=== PATIENT | male | born 1955 | race African-American/Black ===

== ENCOUNTER 2019-05-22 15:15 | Emergency (ER) | payer MEDICAID ==
[~2019-05-22] VITALS: Ht 175.3 cm; Wt 102.0 kg
[2019-05-22 15:20] VITALS: BP 130/83
== END 2019-05-22 18:38 | disposition left against medical advice (07) ==
LOC: ER 15:15
DX: R68.89 Other general symptoms and signs (principal); Z53.21 Procedure and treatment not carried out due to patient leaving prior to being seen by health care provider
CPT/HCPCS: 93005

== ENCOUNTER 2019-05-23 21:22 | Emergency (ER) | payer MEDICAID ==
[~2019-05-23] VITALS: Ht 177.8 cm; Wt 91.0 kg
[2019-05-23] MEDS ORDERED: SODIUM CHLORIDE 0.9% 1,000 ML IV ONE (23:16)
[2019-05-23 23:37] LABS: HEMATOCRIT. 38.1 % (42.0-52.0); HEMOGLOBIN. 12.8 g/dL (14.0-18.0); MEAN CORPUSCULAR HEMOGLOBIN 33.4 pg (28.0-32.0); MEAN CORPUSCULAR VOLUME 99.2 fL (80.0-94.0); MEAN PLATELET VOLUME 8.4 fl (7.4-10.4); PLATELET 351 x1000/uL (130-400); RED BLOOD CELL COUNT 3.84 mill/uL (4.7-6.1)
[2019-05-23 23:39] LABS: CHLORIDE 103 mEq/L (98-107)
[2019-05-24 01:31] VITALS: BP 124/63
[2019-05-24 01:37] LABS: ATYPICAL LYMPHOCYTES 1; PLATELET ESTIMATE NORMAL
== END 2019-05-24 03:38 | disposition home or self-care (01) ==
LOC: ER 21:40
DX: R53.1 Weakness (principal); E11.9 Type 2 diabetes mellitus without complications; I10 Essential (primary) hypertension
CPT/HCPCS: 36415; 71045; 80053; 82962; 83880; 84484; 85025; 93005; 99284; J7030; Z7610

== ENCOUNTER 2019-06-04 01:02 | Emergency (ER) | payer MEDICAID ==
[~2019-06-04] VITALS: Ht 172.7 cm; Wt 110.0 kg
[2019-06-04] MEDS ORDERED: ACETAMINOPHEN 325MG TABLET PO STA (01:53)
[2019-06-04 03:25] LABS: BASOPHILS % 1.3 % (0.0-2.0); EOSINOPHILS % 4.2 % (0.0-5.0); HEMATOCRIT. 39.4 % (42.0-52.0); HEMOGLOBIN. 13.1 g/dL (14.0-18.0); LYMPHOCYTES % 33.3 % (20.0-50.0); MEAN CORPUSCULAR HEMOGLOBIN 32.8 pg (28.0-32.0); MEAN CORPUSCULAR VOLUME 99.1 fL (80.0-94.0); MEAN PLATELET VOLUME 8.8 fl (7.4-10.4); NEUTROPHILS % 52.2 % (40.0-76.0); PLATELET 354 x1000/uL (130-400); RED BLOOD CELL COUNT 3.98 mill/uL (4.7-6.1); RED CELL DISTRIBUTION WIDTH 13.3 % (11.6-14.6)
[2019-06-04 03:32] LABS: CHLORIDE 108 mEq/L (98-107)
[2019-06-04 04:50] VITALS: BP 120/80
== END 2019-06-04 05:15 | disposition home or self-care (01) ==
LOC: ER 01:02
DX: J06.9 Acute upper respiratory infection, unspecified (principal); E11.9 Type 2 diabetes mellitus without complications; I10 Essential (primary) hypertension; F17.200 Nicotine dependence, unspecified, uncomplicated
CPT/HCPCS: 36415; 71045; 84484; 93005; 99284

== ENCOUNTER 2019-06-17 23:15 | Emergency (ER) | payer MEDICAID ==
[~2019-06-17] VITALS: Ht 182.9 cm; Wt 109.0 kg
[2019-06-18 03:22] LABS: BASOPHILS % 0.8 % (0.0-2.0); EOSINOPHILS % 3.2 % (0.0-5.0); HEMATOCRIT. 36.9 % (42.0-52.0); HEMOGLOBIN. 12.5 g/dL (14.0-18.0); LYMPHOCYTES % 16.4 % (20.0-50.0); MEAN CORPUSCULAR HEMOGLOBIN 33.3 pg (28.0-32.0); MEAN CORPUSCULAR VOLUME 98.6 fL (80.0-94.0); MEAN PLATELET VOLUME 9.2 fl (7.4-10.4); MONOCYTES % 7.3 % (2.0-8.0); NEUTROPHILS % 72.3 % (40.0-76.0); PLATELET 303 x1000/uL (130-400); RED BLOOD CELL COUNT 3.74 mill/uL (4.7-6.1); RED CELL DISTRIBUTION WIDTH 13.1 % (11.6-14.6)
[2019-06-18 03:24] LABS: CHLORIDE 103 mEq/L (98-107)
[2019-06-18 03:28] LABS: ETHANOL BLOOD < 10 mg/dL
[2019-06-18] MEDS ORDERED: IBUPROFEN 600MG TABLET PO NR (05:52)
[2019-06-18 06:53] VITALS: BP 110/87
== END 2019-06-18 07:27 | disposition home or self-care (01) ==
LOC: ER 23:15
DX: R07.9 Chest pain, unspecified (principal); Z89.411 Acquired absence of right great toe
CPT/HCPCS: 36415; 71045; 80320; 83880; 84484; 93005; 93971; 99284; G0480

== ENCOUNTER 2019-06-19 20:02 | Emergency (ER) | payer MEDICAID ==
[~2019-06-19] VITALS: Ht 182.9 cm; Wt 111.0 kg
[2019-06-19] MEDS: KETOROLAC 60MG/2ML VIAL IM ONE (21:20)
[2019-06-19 22:02] VITALS: BP 108/69
== END 2019-06-19 22:03 | disposition home or self-care (01) ==
LOC: ER 20:02
DX: M79.661 Pain in right lower leg (principal); F17.290 Nicotine dependence, other tobacco product, uncomplicated; E11.9 Type 2 diabetes mellitus without complications; Z98.890 Other specified postprocedural states
CPT/HCPCS: 96372; 99283; J1885

== ENCOUNTER 2019-06-20 13:38 | Emergency (ER) | payer MEDICAID | END 2019-06-20 14:48 | disposition left against medical advice (07) | LOC: ER 13:50 | DX: Z53.21 Procedure and treatment not carried out due to patient leaving prior to being seen by health care provider (principal) ==

== ENCOUNTER 2019-07-01 02:42 | Emergency (ER) | payer MEDICAID ==
[~2019-07-01] VITALS: Ht 182.9 cm; Wt 87.0 kg
[2019-07-01 02:59] VITALS: BP 108/76
== END 2019-07-01 05:53 | disposition left against medical advice (07) ==
LOC: ER 02:42
DX: Z53.21 Procedure and treatment not carried out due to patient leaving prior to being seen by health care provider (principal); E11.9 Type 2 diabetes mellitus without complications; I10 Essential (primary) hypertension; E78.00 Pure hypercholesterolemia, unspecified

== ENCOUNTER 2019-07-10 21:28 | Emergency (ER) | payer MEDICAID ==
[~2019-07-10] VITALS: Ht 182.9 cm; Wt 111.0 kg
[2019-07-11 01:15] VITALS: BP 147/76
[2019-07-11] MEDS ORDERED: IBUPROFEN 600MG TABLET PO ONE (01:15)
== END 2019-07-11 02:40 | disposition left against medical advice (07) ==
LOC: ER 21:28
DX: M79.10 Myalgia, unspecified site (principal); E11.9 Type 2 diabetes mellitus without complications; E78.00 Pure hypercholesterolemia, unspecified; I10 Essential (primary) hypertension; F17.200 Nicotine dependence, unspecified, uncomplicated; X50.3XXA Overexertion from repetitive movements, initial encounter; Y93.01 Activity, walking, marching and hiking; Y92.9 Unspecified place or not applicable
CPT/HCPCS: 99281

== ENCOUNTER 2019-07-31 20:44 | Emergency (ER) | payer MEDICAID ==
[~2019-07-31] VITALS: Ht 182.9 cm; Wt 110.0 kg
[2019-07-31] MEDS ORDERED: IBUPROFEN 600MG TABLET PO ONE (22:30)
[2019-08-01 06:15] VITALS: BP 121/80
== END 2019-08-01 06:15 | disposition home or self-care (01) ==
LOC: ER 20:44
DX: G89.29 Other chronic pain (principal); M79.604 Pain in right leg; E11.9 Type 2 diabetes mellitus without complications; I10 Essential (primary) hypertension; E78.00 Pure hypercholesterolemia, unspecified; F17.200 Nicotine dependence, unspecified, uncomplicated; Z59.0 Homelessness
CPT/HCPCS: 99283

== ENCOUNTER 2019-08-24 21:03 | Emergency (ER) | payer MEDICAID ==
[~2019-08-24] VITALS: Ht 182.9 cm; Wt 109.0 kg
[2019-08-24 22:01] VITALS: BP 132/88
== END 2019-08-25 10:28 | disposition home or self-care (01) ==
LOC: ER 21:03
DX: Z04.89 Encounter for examination and observation for other specified reasons (principal); G89.29 Other chronic pain; M79.661 Pain in right lower leg; E11.9 Type 2 diabetes mellitus without complications; I10 Essential (primary) hypertension; E78.00 Pure hypercholesterolemia, unspecified; Z59.0 Homelessness
CPT/HCPCS: 99282

== ENCOUNTER 2019-08-31 17:58 | Emergency (ER) | payer MEDICAID ==
[~2019-08-31] VITALS: Ht 175.3 cm; Wt 82.0 kg
[2019-08-31] MEDS ORDERED: IBUPROFEN 600MG TABLET PO ONE (18:45)
[2019-08-31 19:05] LABS: HEMATOCRIT. 38.9 % (42.0-52.0); HEMOGLOBIN. 13.2 g/dL (14.0-18.0); MEAN CORPUSCULAR HEMOGLOBIN 33.8 pg (28.0-32.0); MEAN CORPUSCULAR VOLUME 99.7 fL (80.0-94.0); MEAN PLATELET VOLUME 8.6 fl (7.4-10.4); PLATELET 292 x1000/uL (130-400); RED CELL DISTRIBUTION WIDTH 12.9 % (11.6-14.6)
[2019-08-31 19:11] LABS: CHLORIDE 104 mEq/L (98-107)
[2019-08-31 19:15] LABS: ETHANOL BLOOD 174 mg/dL
[2019-08-31 19:51] LABS: PLATELET ESTIMATE NORMAL
[2019-09-01 05:57] VITALS: BP 135/78
== END 2019-09-01 09:34 | disposition home or self-care (01) ==
LOC: ER 17:58
DX: F10.129 Alcohol abuse with intoxication, unspecified (principal); M79.605 Pain in left leg; M79.604 Pain in right leg; I10 Essential (primary) hypertension; E11.9 Type 2 diabetes mellitus without complications; E78.00 Pure hypercholesterolemia, unspecified; Z59.0 Homelessness; Y90.6 Blood alcohol level of 120-199 mg/100 ml
CPT/HCPCS: 36415; 80048; 80320; 85025; 99285; G0480

== ENCOUNTER 2019-09-08 20:14 | Emergency (ER) | payer MEDICAID ==
[~2019-09-08] VITALS: Ht 180.3 cm; Wt 100.0 kg
[2019-09-09 06:00] VITALS: BP 128/69
== END 2019-09-09 10:20 | disposition left against medical advice (07) ==
LOC: ER 20:14
DX: Z59.0 Homelessness (principal); F10.129 Alcohol abuse with intoxication, unspecified; Y90.9 Presence of alcohol in blood, level not specified; E11.9 Type 2 diabetes mellitus without complications; E78.00 Pure hypercholesterolemia, unspecified; I10 Essential (primary) hypertension
CPT/HCPCS: 82962; 99283

== ENCOUNTER 2019-09-09 13:05 | Emergency (ER) | payer MEDICAID ==
[~2019-09-09] VITALS: Ht 185.4 cm; Wt 91.0 kg
[2019-09-09 13:14] VITALS: BP 136/42
== END 2019-09-09 16:25 | disposition left against medical advice (07) ==
LOC: ER 13:05
DX: R11.2 Nausea with vomiting, unspecified (principal)
CPT/HCPCS: 99283

== ENCOUNTER 2019-09-13 14:45 | Emergency (ER) | payer MEDICAID ==
[~2019-09-13] VITALS: Ht 182.9 cm; Wt 100.0 kg
[2019-09-13 15:46] LABS: CHLORIDE 104 mEq/L (98-107)
[2019-09-13 16:08] LABS: BASOPHILS % 0.3 % (0.0-2.0); EOSINOPHILS % 4.3 % (0.0-5.0); HEMATOCRIT. 40.7 % (42.0-52.0); LYMPHOCYTES % 28.9 % (20.0-50.0); MEAN CORPUSCULAR HEMOGLOBIN 33.9 pg (28.0-32.0); MEAN CORPUSCULAR VOLUME 98.6 fL (80.0-94.0); MEAN PLATELET VOLUME 8.6 fl (7.4-10.4); MONOCYTES % 9.2 % (2.0-8.0); NEUTROPHILS % 57.3 % (40.0-76.0); PLATELET 339 x1000/uL (130-400); RED BLOOD CELL COUNT 4.13 mill/uL (4.7-6.1); RED CELL DISTRIBUTION WIDTH 12.8 % (11.6-14.6)
[2019-09-13 17:09] VITALS: BP 130/79
== END 2019-09-13 17:46 | disposition left against medical advice (07) ==
LOC: ER 14:45
DX: R07.89 Other chest pain (principal); R06.02 Shortness of breath; R05 Cough; Z59.0 Homelessness; E11.9 Type 2 diabetes mellitus without complications; E78.00 Pure hypercholesterolemia, unspecified; I10 Essential (primary) hypertension
CPT/HCPCS: 36415; 71045; 80053; 83880; 84484; 85025; 93005; 99285

== ENCOUNTER 2020-08-16 13:40 | Emergency (ER) | payer MEDICAID ==
[~2020-08-16] VITALS: Ht 182.9 cm; Wt 120.0 kg
[2020-08-16 13:41] VITALS: BP 160/90
[2020-08-16] MEDS ORDERED: METF-414 MT (14:22)
== END 2020-08-16 14:56 | disposition left against medical advice (07) ==
LOC: ER 13:40
DX: E11.65 Type 2 diabetes mellitus with hyperglycemia (principal); I10 Essential (primary) hypertension; Z91.19 Patient's noncompliance with other medical treatment and regimen
CPT/HCPCS: 93005; 99283

== ENCOUNTER 2020-08-29 10:59 | Emergency (ER) | payer MEDICAID ==
[~2020-08-29] VITALS: Ht 177.8 cm; Wt 100.0 kg
[~2020-08-29 10:59] MED LIST: METF-414 MT
[2020-08-29 11:20] VITALS: BP 125/75
[2020-08-29] MEDS ORDERED: PREDNISONE 20MG TABLET PO STA (11:22)
[2020-08-29] MEDS ORDERED: ALBUTEROL (0.083%) 2.5MG/3ML NEB HHN STA (11:22)
[2020-08-29] MEDS ORDERED: ACETAMINOPHEN 325MG TABLET PO STA (11:22)
[2020-08-29] MEDS ORDERED: IPRATROPIUM BROMIDE (0.02%) 0.5MG/2.5ML NEB HHN STA (11:22)
[2020-08-29] MEDS ORDERED: ASPIRIN 325MG EC TABLET PO ONE (11:30)
[2020-08-29] MEDS ORDERED: NITROGLYCERIN OINT 1GM/INCH UDPKT TD ONE (11:30)
== END 2020-08-29 11:29 | disposition left against medical advice (07) ==
LOC: ER 11:07
DX: R07.89 Other chest pain (principal); R06.02 Shortness of breath; E11.9 Type 2 diabetes mellitus without complications; I10 Essential (primary) hypertension; J45.909 Unspecified asthma, uncomplicated; F17.210 Nicotine dependence, cigarettes, uncomplicated; Z59.0 Homelessness; Z71.6 Tobacco abuse counseling; Z79.84 Long term (current) use of oral hypoglycemic drugs
CPT/HCPCS: 93005; 99283; 99406

== ENCOUNTER 2020-09-13 17:22 | Inpatient (IN) | payer MEDICAID ==
[~2020-09-13] VITALS: Ht 182.9 cm; Wt 100.7 kg
[2020-09-13 20:28] LABS: EOSINOPHILS % 2.8 % (0.0-5.0); HEMATOCRIT. 46.6 % (42.0-52.0); HEMOGLOBIN. 15.1 g/dL (14.0-18.0); LYMPHOCYTES % 27.8 % (20.0-50.0); MEAN CORPUSCULAR HEMOGLOBIN 31.6 pg (28.0-32.0); MEAN CORPUSCULAR VOLUME 97.7 fL (80.0-94.0); MEAN PLATELET VOLUME 8.5 fl (7.4-10.4); MONOCYTES % 9.1 % (2.0-8.0); NEUTROPHILS % 59.3 % (40.0-76.0); PLATELET 351 x1000/uL (130-400); RED BLOOD CELL COUNT 4.77 mill/uL (4.7-6.1); RED CELL DISTRIBUTION WIDTH 15.2 % (11.6-14.6)
[2020-09-13 20:29] LABS: CHLORIDE 101 mEq/L (98-107)
[2020-09-14] MEDS ORDERED: MAGNESIUM/ALUMINUM HYDROXIDE/SIMETHICONE 30ML UDC PO PRN (00:45)
[2020-09-14] MEDS ORDERED: DIPHENHYDRAMINE 50MG/ML VIAL IV PRN (00:45)
[2020-09-14] MEDS ORDERED: DEXTROSE 50% WATER 50ML SYRINGE IV PRN (00:45)
[2020-09-14] MEDS ORDERED: ONDANSETRON HCL 4MG/2ML INJ IV PRN (00:45)
[2020-09-14] MEDS ORDERED: ZOLPIDEM TARTRATE 5MG TABLET PO PRN (00:45)
[2020-09-14] MEDS ORDERED: ACETAMINOPHEN 325MG TABLET PO PRN (00:45)
[2020-09-14] MEDS ORDERED: GUAIFENESIN 200MG/10ML SUGAR FREE UDC PO PRN (00:45)
[2020-09-14] MEDS: BLOOD SUGAR DIAGNOSTIC STRIP TEST SCH ×4 (00:58→20:49)
[2020-09-14] MEDS ORDERED: CLONIDINE 0.1MG TABLET PO PRN (01:00)
[2020-09-14] MEDS: INSULIN LISPRO 100 UNITS/ML SUBCUT SCH ×5 (01:07→20:54)
[2020-09-14] MEDS: ENOXAPARIN 40MG/0.4ML SYR SUBCUT SCH (01:07)
[2020-09-14] MEDS ORDERED: IBUPROFEN 600MG TABLET PO PRN (01:15)
[2020-09-14] MEDS ORDERED: CHLORDIAZEPOXIDE 25MG CAPSULE PO PRN (01:30)
[2020-09-14] MEDS: SODIUM CHLORIDE 0.9% INJ 3ML FLUSH IVF SCH ×3 (05:36→20:52)
[2020-09-14 08:00] VITALS: BP 142/56
[2020-09-14] MEDS ORDERED: METFORMIN HCL 500MG TABLET PO SCH ×2 (08:43→09:00)
[2020-09-14] MEDS: ASPIRIN 81MG EC TABLET PO SCH (09:00)
[2020-09-14] MEDS: THIAMINE HCL 100MG TABLET PO SCH (10:55)
[2020-09-14 12:00] VITALS: BP_SYST 144; BP_DIAS 103; BP_DIAS 74
[2020-09-14] MEDS ORDERED: IPRATROPIUM/ALBUTEROL 0.5-3(2.5)MG/3ML NEB HHN SCH (13:00)
[2020-09-14 16:00] VITALS: BP 133/54
[2020-09-14] MEDS: LISINOPRIL 10MG TABLET PO SCH (17:59)
[2020-09-14] MEDS: METFORMIN HCL 500MG TABLET PO SCH (17:59)
[2020-09-14 19:17] VITALS: BP 145/75
[2020-09-14 20:17] VITALS: BP 138/70
[2020-09-14] MEDS: FAMOTIDINE 20MG TABLET PO SCH (20:50)
[2020-09-14] MEDS: ACETAMINOPHEN 325MG TABLET PO PRN (20:50)
[2020-09-15] VITALS: BP 120/68
[2020-09-15 04:00] VITALS: BP 138/80
[2020-09-15] MEDS: BLOOD SUGAR DIAGNOSTIC STRIP TEST SCH ×4 (06:07→20:42)
[2020-09-15] MEDS: SODIUM CHLORIDE 0.9% INJ 3ML FLUSH IVF SCH ×3 (06:08→21:28)
[2020-09-15] MEDS: INSULIN LISPRO 100 UNITS/ML SUBCUT SCH ×4 (06:11→20:42)
[2020-09-15 08:00] VITALS: BP 127/78
[2020-09-15] MEDS: METFORMIN HCL 500MG TABLET PO SCH ×2 (09:51→18:41)
[2020-09-15] MEDS: THIAMINE HCL 100MG TABLET PO SCH (09:51)
[2020-09-15] MEDS: ASPIRIN 81MG EC TABLET PO SCH (09:51)
[2020-09-15] MEDS: LISINOPRIL 10MG TABLET PO SCH (09:51)
[2020-09-15] MEDS: ENOXAPARIN 40MG/0.4ML SYR SUBCUT SCH (09:53)
[2020-09-15] MEDS: ACETAMINOPHEN 325MG TABLET PO PRN (10:17)
[2020-09-15 10:29] LABS: *AMPHETAMINES SCREEN URINE NEGATIVE (NEGATIVE); *BENZODIAZEPINES SCREEN URINE NEGATIVE (NEGATIVE); *COCAINE SCREEN URINE NEGATIVE (NEGATIVE); METHADONE URINE SCREEN NEGATIVE (NEGATIVE); OPIATES URINE SCREEN NEGATIVE (NEGATIVE); PHENCYCLIDINE URINE SCREEN NEGATIVE (NEGATIVE)
[2020-09-15 10:30] LABS: CANNABINOID URINE SCREEN NEGATIVE (NEGATIVE)
[2020-09-15 10:32] LABS: *BARBITURATES SCREEN URINE NEGATIVE (NEGATIVE)
[2020-09-15 12:00] VITALS: BP 108/68
[2020-09-15 16:00] VITALS: BP 112/80
[2020-09-15] MEDS ORDERED: LOPERAMIDE 2MG/15ML UDC PO ONE (17:15)
[2020-09-15] MEDS ORDERED: LOPERAMIDE HCL 2MG CAPSULE PO NR (17:20)
[2020-09-15 20:00] VITALS: BP 115/63
[2020-09-15] MEDS: FAMOTIDINE 20MG TABLET PO SCH (21:28)
[2020-09-16] VITALS: BP 117/60
[2020-09-16] MEDS: ACETAMINOPHEN 325MG TABLET PO PRN ×2 (03:36→21:18)
[2020-09-16 04:00] VITALS: BP 110/60
[2020-09-16] MEDS: INSULIN LISPRO 100 UNITS/ML SUBCUT SCH ×4 (06:23→21:00)
[2020-09-16] MEDS: BLOOD SUGAR DIAGNOSTIC STRIP TEST SCH ×4 (06:23→21:19)
[2020-09-16] MEDS: SODIUM CHLORIDE 0.9% INJ 3ML FLUSH IVF SCH ×3 (06:24→21:19)
[2020-09-16 08:00] VITALS: BP 110/79
[2020-09-16] MEDS: THIAMINE HCL 100MG TABLET PO SCH (10:15)
[2020-09-16] MEDS: ASPIRIN 81MG EC TABLET PO SCH (10:15)
[2020-09-16] MEDS: METFORMIN HCL 500MG TABLET PO SCH ×2 (10:15→17:54)
[2020-09-16] MEDS: ENOXAPARIN 40MG/0.4ML SYR SUBCUT SCH (10:16)
[2020-09-16] MEDS: LISINOPRIL 10MG TABLET PO SCH (10:16)
[2020-09-16 12:00] VITALS: BP 106/71
[2020-09-16 16:00] VITALS: BP 110/76
[2020-09-16 20:00] VITALS: BP 112/61
[2020-09-16] MEDS: FAMOTIDINE 20MG TABLET PO SCH (21:18)
[2020-09-17] VITALS: BP 121/80
[2020-09-17] MEDS: INSULIN LISPRO 100 UNITS/ML SUBCUT SCH (05:59)
[2020-09-17] MEDS: BLOOD SUGAR DIAGNOSTIC STRIP TEST SCH (05:59)
[2020-09-17] MEDS: SODIUM CHLORIDE 0.9% INJ 3ML FLUSH IVF SCH (06:02)
[2020-09-17 08:00] VITALS: BP 133/75
[2020-09-17] MEDS: ASPIRIN 81MG EC TABLET PO SCH (08:13)
[2020-09-17] MEDS: ENOXAPARIN 40MG/0.4ML SYR SUBCUT SCH (08:14)
[2020-09-17] MEDS: METFORMIN HCL 500MG TABLET PO SCH (08:14)
[2020-09-17] MEDS: LISINOPRIL 10MG TABLET PO SCH (08:14)
[2020-09-17] MEDS: THIAMINE HCL 100MG TABLET PO SCH (08:14)
[2020-09-17] MEDS: ACETAMINOPHEN 325MG TABLET PO PRN (08:24)
[2020-09-17 09:54] VITALS: BP 133/75
== END 2020-09-17 10:25 | disposition home or self-care (01) | DRG 140 ==
LOC: ER 17:22 → 8WST 23:59 → ENRESERV 09-14 07:14
PROVIDERS: ADMIT Internal Medicine; ATTEND Internal Medicine
DX: J44.1 Chronic obstructive pulmonary disease with (acute) exacerbation (principal); E11.51 Type 2 diabetes mellitus with diabetic peripheral angiopathy without gangrene; I11.0 Hypertensive heart disease with heart failure; I50.21 Acute systolic (congestive) heart failure; I16.0 Hypertensive urgency; I20.0 Unstable angina; L97.929 Non-pressure chronic ulcer of unspecified part of left lower leg with unspecified severity; F17.210 Nicotine dependence, cigarettes, uncomplicated; I87.8 Other specified disorders of veins; R74.01 Elevation of levels of liver transaminase levels; Z20.822 Contact with and (suspected) exposure to COVID-19; L60.2 Onychogryphosis; Z91.19 Patient's noncompliance with other medical treatment and regimen; Z83.3 Family history of diabetes mellitus; Z82.49 Family history of ischemic heart disease and other diseases of the circulatory system; Z59.0 Homelessness; Z89.421 Acquired absence of other right toe(s); Z79.84 Long term (current) use of oral hypoglycemic drugs; Z79.899 Other long term (current) drug therapy
CPT/HCPCS: 36415; 71045; 80053; 80061; 80305; 82962; 83036; 83880; 84484; 85025; 87426; 93005; 93306; 93922; 97161; 99285; J1650; J1815

== ENCOUNTER 2020-09-29 12:52 | Inpatient (IN) | payer MEDICAID ==
[~2020-09-29] VITALS: Ht 182.9 cm; Wt 106.6 kg
[2020-09-29] MEDS ORDERED: ALBUTEROL (0.083%) 2.5MG/3ML NEB HHN STA (13:18)
[2020-09-29] MEDS ORDERED: IPRATROPIUM BROMIDE (0.02%) 0.5MG/2.5ML NEB HHN STA (13:18)
[2020-09-29] MEDS ORDERED: NITROGLYCERIN 0.4MG TABLET SL SL PRN ×2 (13:30→19:00)
[2020-09-29] MEDS ORDERED: ASPIRIN 81MG TABLET PO ONE (13:30)
[2020-09-29] MEDS ORDERED: ASPIRIN 325MG TABLET PO NR (14:00)
[2020-09-29 14:05] LABS: EOSINOPHILS % 4.7 % (0.0-5.0); HEMATOCRIT. 40.2 % (42.0-52.0); HEMOGLOBIN. 13.4 g/dL (14.0-18.0); LYMPHOCYTES % 28.1 % (20.0-50.0); MEAN CORPUSCULAR HEMOGLOBIN 32.7 pg (28.0-32.0); MEAN CORPUSCULAR VOLUME 98.2 fL (80.0-94.0); MEAN PLATELET VOLUME 8.8 fl (7.4-10.4); MONOCYTES % 10.1 % (2.0-8.0); NEUTROPHILS % 56.1 % (40.0-76.0); PLATELET 433 x1000/uL (130-400); RED CELL DISTRIBUTION WIDTH 14.2 % (11.6-14.6)
[2020-09-29 14:11] LABS: CHLORIDE 104 mEq/L (98-107)
[2020-09-29 14:14] LABS: D-DIMER 0.69 mg/L FEU (<0.50); INR 0.9; PROTHROMBIN TIME 10.1 sec (9.6-11.0)
[2020-09-29] MEDS ORDERED: ENOXAPARIN 40MG/0.4ML SYR SUBCUT SCH (19:00)
[2020-09-29] MEDS ORDERED: LORAZEPAM 0.5MG TABLET PO PRN (19:00)
[2020-09-29] MEDS ORDERED: ZOLPIDEM TARTRATE 5MG TABLET PO PRN (19:00)
[2020-09-29] MEDS ORDERED: CLONIDINE 0.1MG TABLET PO PRN (19:00)
[2020-09-29] MEDS ORDERED: ACETAMINOPHEN 325MG TABLET PO PRN (19:00)
[2020-09-29] MEDS ORDERED: DOCUSATE SODIUM 100MG CAPSULE PO PRN (19:00)
[2020-09-29] MEDS ORDERED: IPRATROPIUM/ALBUTEROL 0.5-3(2.5)MG/3ML NEB NEB PRN (19:00)
[2020-09-29] MEDS ORDERED: GUAIFENESIN 200MG/10ML SUGAR FREE UDC PO PRN (19:00)
[2020-09-29] MEDS ORDERED: MAGNESIUM/ALUMINUM HYDROXIDE/SIMETHICONE 30ML UDC PO PRN (19:00)
[2020-09-29] MEDS ORDERED: KETOROLAC 15MG/ML VIAL IV PRN (19:00)
[2020-09-29] MEDS ORDERED: DEXTROSE 50% WATER 50ML SYRINGE IV PRN (19:00)
[2020-09-29] MEDS ORDERED: ONDANSETRON HCL 4MG/2ML INJ IV PRN (19:00)
[2020-09-29] MEDS ORDERED: METOPROLOL TARTRATE 25MG TABLET PO SCH (21:00)
[2020-09-29] MEDS: BLOOD SUGAR DIAGNOSTIC STRIP TEST SCH (21:29)
[2020-09-29] MEDS: ENOXAPARIN 30MG/0.3ML SYR SUBCUT SCH (21:46)
[2020-09-29] MEDS: ASCORBIC ACID 500 MG TABLET PO SCH (21:46)
[2020-09-29] MEDS: FAMOTIDINE 20MG TABLET PO SCH (21:47)
[2020-09-29] MEDS: INSULIN LISPRO 100 UNITS/ML SUBCUT SCH (21:47)
[2020-09-29 22:08] LABS: TOTAL IRON BINDING CAPACITY 310 ug/dL (250-450)
[2020-09-29 22:27] LABS: FOLIC ACID (FOLATE) SERUM 18.8 ng/mL (>5.38)
[2020-09-29 23:01] LABS: *AMPHETAMINES SCREEN URINE NEGATIVE (NEGATIVE); *BARBITURATES SCREEN URINE NEGATIVE (NEGATIVE); *BENZODIAZEPINES SCREEN URINE NEGATIVE (NEGATIVE); *COCAINE SCREEN URINE NEGATIVE (NEGATIVE); CANNABINOID URINE SCREEN NEGATIVE (NEGATIVE); METHADONE URINE SCREEN NEGATIVE (NEGATIVE); OPIATES URINE SCREEN NEGATIVE (NEGATIVE); PHENCYCLIDINE URINE SCREEN NEGATIVE (NEGATIVE)
[2020-09-29 23:15] VITALS: BP 132/76
[2020-09-30 00:09] VITALS: BP 132/76
[2020-09-30 04:00] VITALS: BP 115/80
[2020-09-30] MEDS ORDERED: ASPI-1497 MT (04:31)
[2020-09-30] MEDS ORDERED: LISI10TA26 MT (04:31)
[2020-09-30 06:53] LABS: BASOPHILS % 1.4 % (0.0-2.0); EOSINOPHILS % 3.3 % (0.0-5.0); HEMATOCRIT. 39.6 % (42.0-52.0); LYMPHOCYTES % 18.6 % (20.0-50.0); MEAN CORPUSCULAR HEMOGLOBIN 32.1 pg (28.0-32.0); MEAN PLATELET VOLUME 9.2 fl (7.4-10.4); MONOCYTES % 8.2 % (2.0-8.0); NEUTROPHILS % 68.5 % (40.0-76.0); PLATELET 372 x1000/uL (130-400); RED BLOOD CELL COUNT 4.04 mill/uL (4.7-6.1); RED CELL DISTRIBUTION WIDTH 14.3 % (11.6-14.6)
[2020-09-30 07:02] LABS: CHLORIDE 101 mEq/L (98-107)
[2020-09-30] MEDS: BLOOD SUGAR DIAGNOSTIC STRIP TEST SCH ×4 (07:20→21:15)
[2020-09-30 07:21] LABS: PHOSPHORUS 3.4 mg/dL (2.5-4.9)
[2020-09-30 07:25] LABS: CREATINE KINASE 97 IU/L (39-308)
[2020-09-30 07:27] LABS: CREATINE KINASE MB FRACTION 1.2 ng/mL (0.5-3.6)
[2020-09-30 08:00] VITALS: BP 136/69
[2020-09-30] MEDS ORDERED: REGADENOSON 0.4 MG/5 ML IV ONE (08:45)
[2020-09-30] MEDS: ASPIRIN 81MG EC TABLET PO SCH (09:00)
[2020-09-30] MEDS ORDERED: ASPIRIN 325MG EC TABLET PO SCH ×2 (09:00)
[2020-09-30] MEDS: FAMOTIDINE 20MG TABLET PO SCH ×2 (09:53→21:18)
[2020-09-30] MEDS: CHOLECALCIFEROL (D3) 1000 UNIT TABLET PO SCH (09:54)
[2020-09-30] MEDS: ASCORBIC ACID 500 MG TABLET PO SCH ×2 (09:54→21:18)
[2020-09-30] MEDS: ZINC SULFATE 220 MG ( 50 ) CAPSULE PO SCH (09:55)
[2020-09-30] MEDS: ENOXAPARIN 30MG/0.3ML SYR SUBCUT SCH ×2 (09:56→21:19)
[2020-09-30] MEDS: INSULIN LISPRO 100 UNITS/ML SUBCUT SCH ×4 (10:00→21:18)
[2020-09-30 12:00] VITALS: BP 125/89
[2020-09-30 16:00] VITALS: BP 122/54
[2020-09-30 20:00] VITALS: BP 109/62
[2020-09-30] MEDS: ACETAMINOPHEN 325MG TABLET PO PRN (23:04)
[2020-10-01] VITALS: BP 112/55
[2020-10-01 04:00] VITALS: BP 135/75
[2020-10-01] MEDS: BLOOD SUGAR DIAGNOSTIC STRIP TEST SCH (06:23)
[2020-10-01] MEDS: ACETAMINOPHEN 325MG TABLET PO PRN (06:24)
[2020-10-01 07:59] VITALS: BP 147/79
[2020-10-01] MEDS: INSULIN LISPRO 100 UNITS/ML SUBCUT SCH (08:27)
[2020-10-01] MEDS: ASPIRIN 81MG EC TABLET PO SCH (08:28)
[2020-10-01] MEDS: FAMOTIDINE 20MG TABLET PO SCH (08:28)
[2020-10-01] MEDS: ASCORBIC ACID 500 MG TABLET PO SCH (08:28)
[2020-10-01] MEDS: ZINC SULFATE 220 MG ( 50 ) CAPSULE PO SCH (08:28)
[2020-10-01] MEDS: CHOLECALCIFEROL (D3) 1000 UNIT TABLET PO SCH (08:28)
[2020-10-01] MEDS: ENOXAPARIN 30MG/0.3ML SYR SUBCUT SCH (08:29)
[2020-10-01] MEDS ORDERED: LISINOPRIL 5MG TABLET PO SCH (09:00)
[2020-10-01 09:56] VITALS: BP 147/79
== END 2020-10-01 10:45 | disposition home or self-care (01) | DRG 140 ==
LOC: ER 12:52 → 6WST 16:52 → ENRESERV 21:36
PROVIDERS: ADMIT Internal Medicine; ATTEND Internal Medicine
DX: J44.1 Chronic obstructive pulmonary disease with (acute) exacerbation (principal); I50.43 Acute on chronic combined systolic (congestive) and diastolic (congestive) heart failure; E11.51 Type 2 diabetes mellitus with diabetic peripheral angiopathy without gangrene; I42.9 Cardiomyopathy, unspecified; I11.0 Hypertensive heart disease with heart failure; M94.0 Chondrocostal junction syndrome [Tietze]; F17.210 Nicotine dependence, cigarettes, uncomplicated; F10.10 Alcohol abuse, uncomplicated; Y90.9 Presence of alcohol in blood, level not specified; E78.5 Hyperlipidemia, unspecified; D63.8 Anemia in other chronic diseases classified elsewhere; Z59.0 Homelessness; Z91.14 Patient's other noncompliance with medication regimen; Z79.4 Long term (current) use of insulin; I25.2 Old myocardial infarction; Z79.899 Other long term (current) drug therapy; Z71.41 Alcohol abuse counseling and surveillance of alcoholic
CPT/HCPCS: 36415; 71045; 80053; 80061; 80305; 80320; 82550; 82553; 82607; 82746; 82962; 83036; 83540; 83550; 83735; 83880; 84100; 84484; 85025; 85379; 93005; 93970; 94640; 99285; J1650; J1815; J1885; G0480

== ENCOUNTER 2020-12-03 16:16 | Emergency (ER) | payer MEDICAID ==
[~2020-12-03] VITALS: Ht 182.9 cm; Wt 91.0 kg
[2020-12-03 16:17] VITALS: BP 104/70
[2020-12-03] MEDS ORDERED: INSULIN REGULAR (HUMULIN R) 300UNITS/3ML VIAL SUBCUT ONE (17:00)
[2020-12-06] MEDS ORDERED: LISI10TA26 PO (02:41)
== END 2020-12-03 16:54 | disposition left against medical advice (07) ==
LOC: ER 16:16
DX: E11.65 Type 2 diabetes mellitus with hyperglycemia (principal); I11.0 Hypertensive heart disease with heart failure; I50.9 Heart failure, unspecified; J40 Bronchitis, not specified as acute or chronic
CPT/HCPCS: 99283

== ENCOUNTER 2020-12-09 13:54 | Emergency (ER) | payer MEDICAID ==
[~2020-12-09] VITALS: Ht 182.9 cm; Wt 112.0 kg
[~2020-12-09 13:54] MED LIST changes: +LISI10TA26 PO
[2020-12-09] MEDS ORDERED: IBUPROFEN 600MG TABLET PO STA (14:57)
[2020-12-09] MEDS ORDERED: SODIUM CHLORIDE 0.9% 1,000 ML IV ONE (15:00)
[2020-12-09 15:18] VITALS: BP 123/66
[2020-12-09 15:38] LABS: BASOPHILS % 0.9 % (0.0-2.0); EOSINOPHILS % 4.1 % (0.0-5.0); HEMATOCRIT. 33.4 % (42.0-52.0); HEMOGLOBIN. 11.5 g/dL (14.0-18.0); LYMPHOCYTES % 28.2 % (20.0-50.0); MEAN CORPUSCULAR HEMOGLOBIN 34.7 pg (28.0-32.0); MEAN CORPUSCULAR VOLUME 100.9 fL (80.0-94.0); MEAN PLATELET VOLUME 8.6 fl (7.4-10.4); MONOCYTES % 9.8 % (2.0-8.0); PLATELET 276 x1000/uL (130-400); RED BLOOD CELL COUNT 3.31 mill/uL (4.7-6.1); RED CELL DISTRIBUTION WIDTH 14.3 % (11.6-14.6)
[2020-12-09 15:42] LABS: CHLORIDE 105 mEq/L (98-107)
[2020-12-09 15:46] LABS: ETHANOL BLOOD 182 mg/dL
== END 2020-12-09 16:07 | disposition home or self-care (01) ==
LOC: ER 14:02
DX: E11.65 Type 2 diabetes mellitus with hyperglycemia (principal); F17.200 Nicotine dependence, unspecified, uncomplicated; Z79.899 Other long term (current) drug therapy; E86.0 Dehydration
CPT/HCPCS: 36415; 80053; 80320; 85025; 96360; 99283; Z7610; G0480

== ENCOUNTER 2020-12-16 09:19 | Emergency (ER) | payer MEDICAID ==
[~2020-12-16] VITALS: Ht 180.3 cm; Wt 102.0 kg
[2020-12-16] MEDS ORDERED: aspirin (09:21)
[2020-12-16 10:30] VITALS: BP 122/68
== END 2020-12-16 11:03 | disposition home or self-care (01) ==
LOC: ER 09:54
DX: R60.0 Localized edema (principal); F10.129 Alcohol abuse with intoxication, unspecified; E11.65 Type 2 diabetes mellitus with hyperglycemia; I10 Essential (primary) hypertension; Y90.9 Presence of alcohol in blood, level not specified
CPT/HCPCS: 82962; 99283; Z7610

== ENCOUNTER 2020-12-16 14:31 | Emergency (ER) | payer MEDICAID ==
[~2020-12-16] VITALS: Ht 172.7 cm; Wt 100.0 kg
[~2020-12-16 14:31] MED LIST changes: +aspirin
[2020-12-16 14:38] VITALS: BP 140/73
== END 2020-12-16 18:44 | disposition home or self-care (01) ==
LOC: ER 14:36
DX: M79.10 Myalgia, unspecified site (principal); E11.9 Type 2 diabetes mellitus without complications; I10 Essential (primary) hypertension; Z79.899 Other long term (current) drug therapy
CPT/HCPCS: 99283

== ENCOUNTER 2020-12-19 13:07 | Emergency (ER) | payer MEDICAID ==
[~2020-12-19] VITALS: Ht 177.8 cm; Wt 100.0 kg
[2020-12-19 13:30] VITALS: BP 189/88
== END 2020-12-19 14:30 | disposition left against medical advice (07) ==
LOC: ER 13:07
DX: R60.0 Localized edema (principal); I10 Essential (primary) hypertension; E11.9 Type 2 diabetes mellitus without complications; F17.210 Nicotine dependence, cigarettes, uncomplicated; Z87.828 Personal history of other (healed) physical injury and trauma; Z99.3 Dependence on wheelchair; Z79.84 Long term (current) use of oral hypoglycemic drugs; Z79.82 Long term (current) use of aspirin
CPT/HCPCS: 73610; 93971; 99284